=== PATIENT | female | born 1965 | race Caucasian/White ===

== ENCOUNTER 2021-04-21 07:10 | Outpatient (REF) | payer MEDICARE, SELFPAY | END 2021-04-21 07:11 | disposition home or self-care (01) | LOC: HO.HOSX 07:10 | PROVIDERS: Visit Provider Physician Assistant | DX: Z13.89 Encounter for screening for other disorder (principal) ==

== ENCOUNTER 2021-08-29 07:44 | Outpatient (REF) | payer MEDICARE, SELFPAY | END 2021-08-29 07:45 | disposition home or self-care (01) | LOC: HO.HOSX 07:44 | PROVIDERS: Visit Provider Physician Assistant | DX: Z13.89 Encounter for screening for other disorder (principal) ==

== ENCOUNTER 2021-09-24 06:05 | Outpatient (REF) | payer MEDICARE, SELFPAY | END 2021-09-24 06:06 | disposition home or self-care (01) | LOC: HO.HOSX 06:05 | PROVIDERS: Visit Provider Physician Assistant | DX: Z13.89 Encounter for screening for other disorder (principal) ==

== ENCOUNTER 2022-01-14 | Outpatient (REF) | payer MEDICARE, SELFPAY | END 2022-01-14 00:01 | disposition home or self-care (01) | LOC: HO.HOSX | PROVIDERS: Visit Provider Physician Assistant | DX: Z13.89 Encounter for screening for other disorder (principal) ==

== ENCOUNTER 2022-03-13 07:59 | Outpatient (REF) | payer MEDICARE, SELFPAY | END 2022-03-13 08:00 | disposition home or self-care (01) | LOC: HO.HOSX 07:59 | PROVIDERS: Visit Provider Physician Assistant | DX: Z13.89 Encounter for screening for other disorder (principal) ==

== ENCOUNTER 2022-03-20 08:00 | Outpatient (REF) | payer MEDICARE, SELFPAY ==
--- NOTE | ~2022-03-20 | XR_ITS ---
EXAMINATION: XR KNEE, LEFT XR KNEE AP STANDING CLINICAL INFORMATION: Pain. COMPARISON: None TECHNIQUE: Lateral and axial views are submitted of the left knee. AP bilateral standing view of the knees was obtained. FINDINGS: Bony alignment and mineralization are normal. There has been a prior left ACL repair. There is mild to moderate asymmetric narrowing of the medial joint space compartment of the left knee. The left lateral and patellofemoral joint space compartments are well-maintained. There is tricompartment peripheral osteophyte formation. No fracture, dislocation or left knee joint effusion is seen. There is no foreign body. The lateral and medial joint space compartments of the right knee are well-maintained. There is very mild peripheral osteophyte formation of the lateral joint space compartment of the right knee, and mild peripheral osteophyte formation is seen of the medial joint space compartment. No significant varus or valgus configuration is seen bilaterally. XR/XR knee LT 2V IMPRESSION: 1. There is tricompartment osteoarthritic change of the left knee, most pronounced of the medial joint space compartment, where it is mild to moderate. 2. There is very mild to mild osteoarthritic change of the lateral and medial joint space compartments of the left knee. 3. No fracture, dislocation or joint effusion is seen. 4. There is no significant varus or valgus configuration noted bilaterally.
--- NOTE | ~2022-03-20 | XR_ITS ---
EXAMINATION: XR KNEE, LEFT XR KNEE AP STANDING CLINICAL INFORMATION: Pain. COMPARISON: None TECHNIQUE: Lateral and axial views are submitted of the left knee. AP bilateral standing view of the knees was obtained. FINDINGS: Bony alignment and mineralization are normal. There has been a prior left ACL repair. There is mild to moderate asymmetric narrowing of the medial joint space compartment of the left knee. The left lateral and patellofemoral joint space compartments are well-maintained. There is tricompartment peripheral osteophyte formation. No fracture, dislocation or left knee joint effusion is seen. There is no foreign body. The lateral and medial joint space compartments of the right knee are well-maintained. There is very mild peripheral osteophyte formation of the lateral joint space compartment of the right knee, and mild peripheral osteophyte formation is seen of the medial joint space compartment. No significant varus or valgus configuration is seen bilaterally. XR/XR knee standing BI IMPRESSION: 1. There is tricompartment osteoarthritic change of the left knee, most pronounced of the medial joint space compartment, where it is mild to moderate. 2. There is very mild to mild osteoarthritic change of the lateral and medial joint space compartments of the left knee. 3. No fracture, dislocation or joint effusion is seen. 4. There is no significant varus or valgus configuration noted bilaterally.
== END 2022-03-20 08:01 | disposition home or self-care (01) ==
LOC: HO.HOSX 08:00
PROVIDERS: Visit Provider Physician Assistant
DX: M17.12 Unilateral primary osteoarthritis, left knee (principal)
CPT/HCPCS: 20610; 73560; 73565; 99202; J1040

== ENCOUNTER 2022-04-08 07:47 | Outpatient (REF) | payer MEDICARE, SELFPAY | END 2022-04-08 07:48 | disposition home or self-care (01) | LOC: HO.HOSX 07:47 | PROVIDERS: Visit Provider Physician Assistant | DX: Z13.89 Encounter for screening for other disorder (principal) ==

== ENCOUNTER 2022-04-20 17:08 | Outpatient (REF) | payer MEDICARE, SELFPAY | END 2022-04-20 17:09 | disposition home or self-care (01) | LOC: HO.HOSX 17:08 | PROVIDERS: Visit Provider Physician Assistant | DX: Z13.89 Encounter for screening for other disorder (principal) ==

== ENCOUNTER 2022-06-16 07:55 | Outpatient (REF) | payer MEDICARE, SELFPAY | END 2022-06-16 07:56 | disposition home or self-care (01) | LOC: HO.HOSX 07:55 | PROVIDERS: Visit Provider Physician Assistant | DX: Z13.89 Encounter for screening for other disorder (principal) ==

== ENCOUNTER 2022-07-21 10:15 | Outpatient (REF) | payer MEDICARE, SELFPAY | END 2022-07-21 10:16 | disposition home or self-care (01) | LOC: HO.HOSX 10:15 | PROVIDERS: Visit Provider Physician Assistant | DX: Z13.89 Encounter for screening for other disorder (principal) ==

== ENCOUNTER 2022-08-27 08:31 | Outpatient (REF) | payer MEDICARE, SELFPAY ==
--- NOTE | ~2022-08-27 | XR_ITS ---
EXAMINATION: XR WRIST, LEFT CLINICAL INFORMATION: Pain COMPARISON: None available. TECHNIQUE: PA, lateral, and oblique views of the left wrist. FINDINGS: Bones are osteopenic. No fracture or dislocation. Question erosion of the trapezium appreciated on the oblique view. Normal joint spaces. Normal soft tissues. XR/XR wrist LT min 3V IMPRESSION: Question small cyst or erosion. Osteopenia.
== END 2022-08-27 08:32 | disposition home or self-care (01) ==
LOC: HO.HOSX 08:31
PROVIDERS: Visit Provider Physician Assistant
DX: M67.432 Ganglion, left wrist (principal)
CPT/HCPCS: 73110; 99202

== ENCOUNTER 2022-10-30 13:10 | Outpatient (AMB) | payer MEDICARE, SELFPAY ==
--- NOTE | 2022-10-30 13:12 | A.OFFVIS_ITS ---
Intake Vital Signs 10/30/22 13:28 Height 5 ft 4 in Weight 185 lb BMI 31.8 Intake Visit Reasons: OV - Lt Knee pain, last inj 03/20/22 Intake Note: Liyah a 56 year old female who presents today for a follow up of left knee, last injection on 03/20/22. Patient reports good relief with injection but on mothers day she twisted her knee and felt a snap on the lateral side of knee. She was not able to bear any weight for hours. Currently pain is all around her knee and feels like a crushing inside. States days were she can not fully straighten her leg. Finds relief with hydrocodone and fioricet. Requesting an MRI and would also like to discuss knee surgery. Hx of blood clots in leg. Allergies acetaminophen [From Percocet] Allergy (Severe, Verified 10/30/22 13:28) swollen throat morphine Allergy (Severe, Verified 10/30/22 13:28) swollen throat oxycodone [From Percocet] Allergy (Severe, Verified 10/30/22 13:28) swollen throat HPI OV - Lt Knee pain, last inj 03/20/22 HPI Details 56-year-old female who presents in the office today for a follow up of left knee pain. The patient had a cortisone injection in the left knee on 03/20/2022. She reports good relief with her injections. She states on Mother?s day she twisted her knee and felt a snap on the lateral aspect of the left knee. She claims she was not able to bear weight on the left lower extermity for hours. She states the pain is currently around the knee and feels like a ?crushing? inside. She states there are days she can not straighten her leg. She states she get relief hydrocodone and floricet. She is requesting an MRI and would like to discuss knee surgery. The patient claims she has no quality of life due to the pain in her knee and her lacking mobility. She ambulates with a walker, crutches, and sometimes a cane. History of blood clots in the left lower extremity. [facility] Social History Alcohol intake: never Patient Tobacco Use Status: Never used Tobacco Current occupational status: disabled Current occupation: right hand dominant Review of Systems Const All systems reviewed & are unremarkable except as noted in HPI and below Physical Exam Vital Signs: BMI result Body Mass Index 31.8 Const General: cooperative, healthy appearing and no acute distress Resp Effort & Inspection: normal respiratory effort and able to speak in complete sentences Cardio Rate: regular rate Peripheral pulses: Peripheral pulses 2+ throughout GI Palpation (GI): Soft to palpation Skin Lesions: no lesions Rashes: no rashes Extrem Other: Left knee: Normal to inspection. No ecchymosis, erythema, or joint effusion. No tenderness to palpation to the medial or lateral joint lines. Full knee extension and flexion. NVI. Assessment & Plan Assessment & Plan (1) Osteoarthritis of left knee: Code(s): M17.12 - Unilateral primary osteoarthritis, left knee Plan Ms. Smith is a 56-year-old female who presents in the office today for a follow up of left knee pain. The patient had a cortisone injection in the left knee on 03/20/2022. She reports good relief with her injections. She states on Mother?s day she twisted her knee and felt a snap on the lateral aspect of the left knee. She claims she was not able to bear weight on the left lower extermity for hours. She states the pain is currently around the knee and feels like a ?crushing? inside. She states there are days she can not straighten her leg. She states she get relief hydrocodone and floricet. She is requesting an MRI and would like to discuss knee surgery. The patient claims she has no quality of life due to the pain in her knee and her lacking mobility. She ambulates with a walker, crutches, and sometimes a cane. History of blood clots in the left lower extremity. Dr. Danielson was available for me to see the patient with me while in the office today. We discussed a left total knee arthroplasty, which the patient is in agreement with. A message has been sent to Lani, our nurse navigator. The patient has a history of blood clots and a family history of blood clots. She states her brother from a PE. She will follow up with Lani, or sooner if needed. 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 Coding Level of Care Code New Pt Level 4 (53699) Diagnoses Osteoarthritis of left knee M17.12
[2022-10-30 13:28] VITALS: BMI 31.8
== END 2022-10-30 14:09 | disposition home or self-care (01) ==
PROVIDERS: PCP Internal Medicine; Visit Provider Physician Assistant
DX: M17.12 Unilateral primary osteoarthritis, left knee (principal)
CPT/HCPCS: 99214

== ENCOUNTER → 2022-10-30 13:10 | Outpatient (BNVA) | payer MEDICARE, SELFPAY | PROVIDERS: PCP Internal Medicine; Visit Provider Physician Assistant ==

== ENCOUNTER 2023-03-04 13:08 | Outpatient (REF) | payer MEDICARE, SELFPAY | END 2023-03-04 13:09 | disposition home or self-care (01) | LOC: HO.HOSX 13:08 | PROVIDERS: Visit Provider Physician Assistant | DX: Z13.89 Encounter for screening for other disorder (principal) ==